=== PATIENT | male | born 1965 | race Caucasian/White ===

== ENCOUNTER 2020-02-12 17:35 | Emergency (ER) | payer SELFPAY ==
[~2020-02-12] VITALS: Ht 172.7 cm; Wt 81.8 kg
--- NOTE | 2020-02-12 18:34 | NUR ---
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
[2020-02-12 18:39] VITALS: BP 134/105
--- NOTE | 2020-02-12 18:54 | NUR ---
RECEIVED REPORT FROM [facility] FRIEND. ERP TO BEDSIDE, PT CONVERSING.
[2020-02-12] MEDS ORDERED: KETOROLAC 30 MG/1 ML ONE (18:58)
[2020-02-12] MEDS ORDERED: KETOROLAC 30 MG/1 ML IM ONE (19:00)
--- NOTE | 2020-02-12 19:01 | NUR ---
PT AMBULATORY TO IMAGING, STEADY GAIT.
--- NOTE | 2020-02-12 20:01 | NUR ---
PT DRESSED SELF, SITTING IN CHAIR WAITING FOR D/C INSTRUCTIONS.
[2020-02-12] MEDS ORDERED: IBUPROFEN 800 MG TABLET ONE (20:26)
[2020-02-12] MEDS ORDERED: IBUPROFEN 800 MG TABLET PO ONE (20:30)
--- NOTE | 2020-02-12 20:33 | NUR ---
PT STATES "OH, MY BLOOD PRESSURE'S BEEN WAY HIGHER THAN THAT" PT EDUCATED TO FOLLOW UP WITH PCP, GIVEN REFERENCES ABOUT PCPs. ERP AWARE AND OKAY WITH BP.
== END 2020-02-12 20:36 | disposition home or self-care (01) ==
LOC: ED 20:26
DX: S63.622A Sprain of interphalangeal joint of left thumb, initial encounter (principal); F17.200 Nicotine dependence, unspecified, uncomplicated; X50.1XXA Overexertion from prolonged static or awkward postures, initial encounter; Y93.89 Activity, other specified; Y92.098 Other place in other non-institutional residence as the place of occurrence of the external cause; Y99.8 Other external cause status
CPT/HCPCS: 29125; 99283